=== PATIENT | female | born 1970 | race Caucasian/White ===

== ENCOUNTER → 2019-07-06 | Outpatient (CLI) | payer BC ==
--- NOTE | 2019-07-07 15:14 | PCVCIMAG ---
APPROVED REPORT Study performed: 07/06/2019 16:21:56 EXAM: Comprehensive 2D, Doppler, and color-flow Echocardiogram Patient Location: Echo lab Status: routine BSA: 1.76 HR: 74 bpmBP: 100/80 mmHg Rhythm: NSR Other Information Study Quality: Good Risk Factors: Cardiac Risk Factors: Family history of CAD 2D Dimensions IVSd: 9.19 (7-11mm)LVOT Diam: 20.09 (18-24mm) LVDd: 39.10 mm PWd: 9.51 (7-11mm)Ascending Ao: 26.67 (22-36mm) LVDs: 29.81 (25-40mm) Left Atrium: 38.11 (27-40mm) Aortic Root: 24.00 mm LV Single Plane 4CH: 62.09 % LV Single Plane 2CH: 63.39 % Biplane EF: 61.2 % Volumes Left Atrial Volume (Systole) Single Plane 4CH: 40.06 mLSingle Plane 2CH: 52.69 mL LA ESV Index: 28.00 mL/m2 Mitral Valve E/A Ratio: 1.1 MV Decel. Time: 167.96 ms MV E Max Lenin.: 0.74 m/s MV A Lenin.: 0.68 m/s IVRT: 103.81 ms TDI E/Lateral E': 5.69E/Medial E': 6.17 Medial E' Lenin.: 0.12 m/s Lateral E' Lenin.: 0.13 m/s Pulmonary Vein P Vein S: 0.49 m/sP Vein A: 0.44 m/s P Vein D: 0.45 m/sP Vein A Dur.: 90.0 msec P Vein S/D Ratio: 1.09 Tricuspid Valve TR Peak Lenin.: 2.18 m/s TR Peak Gr.: 19.02 mmHg Left Ventricle The left ventricle is normal size. There is normal LV segmental wall motion. There is normal left ventricular wall thickness. Left ventricular systolic function is normal. The left ventricular ejection fraction is within the normal range. LVEF is 60-65%. Right Ventricle The right ventricle is normal size. The right ventricular systolic function is normal. Atria The left atrium size is normal. The right atrium size is normal. Aortic Valve The aortic valve is normal in structure. No aortic regurgitation is present. There is no aortic valvular stenosis. Mitral Valve The mitral valve is normal in structure. Trace mitral regurgitation. No evidence of mitral valve stenosis. Tricuspid Valve The tricuspid valve is normal in structure. There is no tricuspid valve regurgitation noted. Pulmonic Valve The pulmonary valve is normal in structure. There is no pulmonic valvular regurgitation. Great Vessels The aortic root is normal in size. IVC is normal in size and collapses >50% with inspiration. Pericardium There is no pericardial effusion. <Conclusion> The left ventricle is normal size. LVEF is 60-65%. The aortic valve is normal in structure. The mitral valve is normal in structure. Trace mitral regurgitation. The tricuspid valve is normal in structure. The pulmonary valve is normal in structure. There is no pericardial effusion.
== END | disposition home or self-care (01) ==
LOC: PCVCIMAG 15:54
PROVIDERS: ATTEND Internal Medicine
DX: I10 Essential (primary) hypertension (principal); Z82.49 Family history of ischemic heart disease and other diseases of the circulatory system
CPT/HCPCS: 93306